=== PATIENT | male | born 1950 | race Caucasian/White ===

== ENCOUNTER → 2016-04-02 | Outpatient (CLI) | payer OTHER | LOC: FIMAGING 09:27 | PROVIDERS: ATTEND Internal Medicine | DX: B18.1 Chronic viral hepatitis B without delta-agent (principal) ==

== ENCOUNTER 2016-06-28 11:20 | Observation (INO) | payer OTHER ==
[2016-06-28] MEDS ORDERED: diphenhydrAMINE 25 MG CAP PO ONE ×2 (11:24→11:48)
[2016-06-28] MEDS ORDERED: FAMOTIDINE 20 MG TAB PO ONE (11:24)
[2016-06-28] MEDS ORDERED: NS 1,000 ML IV ONE (11:24)
[2016-06-28] MEDS ORDERED: DIAZEPAM 5 MG TAB PO ONE (11:24)
[2016-06-28] MEDS ORDERED: ASPIRIN EC 325 MG TAB PO ONE ×2 (11:24→11:49)
--- NOTE | 2016-06-28 11:43 | CPEKG ---
Heart Rate: 57 RR Interval: 1053 P-R Interval: 180 QRSD Interval: 108 QT Interval: 436 QTC Interval: 425 P [place]: 60 QRS [place]: 64 T Wave [place]: -5 EKG Severity - OTHERWISE NORMAL ECG - EKG Impression: SINUS RHYTHM EKG Impression: INCOMPLETE RIGHT BUNDLE BRANCH BLOCK Electronically Signed By: Katherine Milan 28-Jun-2016 12:04:42
[2016-06-28] MEDS ORDERED: FAMOTIDINE 20 MG TAB ONE (11:48)
[2016-06-28] MEDS ORDERED: DIAZEPAM 5 MG TAB ONE (11:49)
[2016-06-28 12:45] LABS: % IMMATURE GRANULYOCYTES 0.3 % (0.0-1.1); ABSOLUTE IMMATURE GRANULOCYTES 0.02 10^3/uL (0.00-0.10); ADD DIFF? NO; ADD MORPH? NO; ADD SCAN? NO; ATYPICAL LYMPHOCYTE FLAG 0 (0-99); FRAGMENT RBC FLAG 0 (0-99); HEMOGLOBIN 15.8 g/dL (13.7-17.5); LEFT SHIFT FLG 0 (0-99); LIPEMIA HEMOLYSIS FLAG 90 (0-99); MEAN CELL HEMOGLOBIN 32.8 pg (27.9-34.1); MEAN CELL HEMOGLOBIN CONCENTR. 35.9 g/dL (32.4-36.7); MEAN CELL VOLUME 91.3 fL (81.5-99.8); MEAN PLATELET VOLUME 10.1 fL (8.7-11.7); PLATELET CLUMPS FLAG 30 (0-99); PLATELET COUNT 143 10^3/uL (150-400); RED BLOOD CELL COUNT 4.82 10^6/uL (4.40-6.38); RED CELL DISTRIBUTION WIDTH 13.2 % (11.5-15.2)
[2016-06-28 13:00] LABS: INR 0.98 (0.83-1.16); PROTIME(PATIENT) 12.9 SEC (12.0-15.0)
[2016-06-28] MEDS ORDERED: LIDOCAINE 1% 30 ML SDV ONE (13:00)
[2016-06-28] MEDS ORDERED: MIDAZOLAM 2 MG/2 ML VIAL ONE ×2 (13:00→14:22)
[2016-06-28] MEDS ORDERED: IOPAMIDOL (ISOVUE-370) 150 ML BTL IV ONE ×2 (13:00→14:29)
[2016-06-28] MEDS ORDERED: fentaNYL 100 MCG/2 ML INJ ONE ×2 (13:00→14:22)
[2016-06-28 13:10] LABS: ANION GAP 12 mEq/L (8-16); CALCIUM 9.6 mg/dL (8.5-10.4); CARBON DIOXIDE 25 mEq/l (22-31); CHLORIDE 107 mEq/L (97-110); CHOLESTEROL 127 mg/dL (140-220); CHOLESTEROL/HDL RATIO 3.18 RATIO (1.00-4.97); GLOMERULAR FILTRATION RATE > 60; GLUCOSE 118 mg/dL (70-100); HIGH DENSITY LIPOPROTEIN 40 mg/dL (40-65); LDL/HDL RATIO 1.38 RATIO (1.00-3.64); LOW DENSITY LIPOPROTEIN 55 mg/dL (80-100); MAGNESIUM 1.8 mg/dL (1.6-2.3); NON-HIGH DENSITY LIPOPROTEIN 87 mg/dL (90-129); POTASSIUM 4.4 mEq/L (3.5-5.2); SODIUM 144 mEq/L (134-144); TRIGLYCERIDE 164 mg/dL (40-150); VERY LOW DENSITY LIPOPROTEINS 32 mg/dL (8-25)
[2016-06-28] MEDS ORDERED: BIVALIRUDIN 250 MG/5 ML VIAL IV ONE (13:54)
--- NOTE | 2016-06-28 15:25 | PDDXCAT ---
Diagnostic Cath Note - . Date: 06/28/16 Power Plant Operator Apprentice: Brodie Indication: High-risk criteria on noninvasive testing (choose option below) High-risk criteria on non-invasive testing: stress-induced large perfusion defect (particularly if anterior) - Procedure Access: right groin Procedure: left heart catheterization, coronary angiography, left ventriculogram , vein graft injection, PAGE injection - Materials Left Heart Cath size: 6F Left Heart Cath materials: standard multipack (JL4, JR4, pigtail), KALEB - Findings-Left Heart Catheterization LM: Short without appreciable delineation of the bifurcation between the LAD and LCX. Minor luminal irregularities were noted. LAD: 100% occlusion in the ostium of the vessel LCX: Medium to small diameter vessel with a principal OM (stented). In the proximal portion of the OM, involving the stent, there is a subtotal occlusion. This stenosis likely represents the defect noted on stress testing on recent stress testing at [facility]. RCA: Known to be 100% occluded rSVG: (1) rSVT to the PDA with 80% stenosis to the proximal portion of this vessel. Extensive stenting throughout the entire vessel was noted. Retrograde flow into the [place] RCA system was noted. Anterograde flow from the anastamotic site to distal vessel without impairment. PAGE: Widely patent PAGE to the LAD. Retrograde flow into the LAD, and down the principal diagonal. There is moderate tortuosity noted to the LAD/Diag system, but MARY III flow was noted. EDP: not assessed to limit contrast LVEF: not assessed Wall motion: not assessed Complications: no complications Estimated blood loss: <50ml Closure method: manual pressure Assessment: Patient is a 65 y/o male with extensive cardiovascular history (CAD s/p PCI and CABG) with abnormal stress testing at [facility] yesterday. Given complaints of chest discomfort, as well as "eleven" stents with CABG, we brought the patient to the cardiac labview programmer for assessment of a large lateral wall defect. A critical lesion to previously stented OM was noted as well as another lesion to the proximal portion of the rSVG to PDA. Patent PAGE to LAD was noted. Plan: Dr. Kamran Reeves to attempt PCI to the LCX/OM lesion and possibly the rSVG to PDA lesion noted. Intervention: pending
[2016-06-28] MEDS ORDERED: TEMAZEPAM 15 MG CAP PO PRN (17:32)
[2016-06-28] MEDS ORDERED: HYDROCODONE/APAP 5/325 TAB PO PRN (17:32)
[2016-06-28] MEDS ORDERED: ONDANSETRON 4 MG/2 ML VIAL IVP PRN (17:32)
[2016-06-28] MEDS ORDERED: LORazepam 2 MG/ML INJ IVP PRN (17:32)
[2016-06-28] MEDS ORDERED: ATROPINE SULFATE 1 MG/10 ML SYR IVP PRN (17:32)
[2016-06-28] MEDS ORDERED: NS 1,000 ML IV SCH (17:45)
[2016-06-28] MEDS ORDERED: NON-FORMULARY NEW DRUG (Insulin Pump, Patient Own 1 EA) MISC SCH (17:45)
[2016-06-28] MEDS ORDERED: D50W 25 GM/50 ML SYR IVP PRN (18:09)
[2016-06-28] MEDS ORDERED: INSULIN PUMP, PATIENT OWN 1 EA MISC SCH (18:15)
[2016-06-28] MEDS: METOPROLOL TARTRATE 25 MG TAB PO SCH (18:31)
[2016-06-28] MEDS: RAMIPRIL 5 MG CAP PO SCH (18:31)
[2016-06-28] MEDS: ISOSORBIDE MONONITRATE 30 MG TAB.SR PO SCH (18:31)
[2016-06-28] MEDS: OMEGA-3 FATTY ACIDS 1,000 MG CAP PO SCH (19:49)
[2016-06-28] MEDS: RALTEGRAVIR 400 MG TAB PO SCH (19:57)
--- NOTE | 2016-06-28 20:00 | CPIP ---
[f rep st] INVASIVE CARDIAC PROCEDURE DATE OF PROCEDURE: 06/28/2016 PROCEDURE PERFORMED: Attempted percutaneous coronary intervention of an obtuse marginal branch of t krishna circumflex. INDICATION FOR PROCEDURE: Please refer to the diagnostic cardiac cath report by Dr. Sky Calloway. Nikki kassidy, the patient is a 65-year-old male with a long-standing history of CAD. He underwent 2-vesse l coronary bypass surgery in 2001. He has had multiple PCI procedures in the past as well. Because of recurrent chest discomfort and an abnormal stress test, Dr. Calloway performed a diagnostic cathet erization which demonstrated that his PAGE graft to the LAD was patent and his saphenous vein graft to the distal RCA was patent, but there was suggestion of a moderate to high-grade lesion at the vishnu gin of the graft. The graft terminates on the inferior wall of the heart and supplies retrograde fi lling of a large portion of the mid and proximal RCA. However, proceeding distally there is only a small posterior descending branch. The patient has had previous PCI/stent procedures involving the circumflex territory. The proximal portion of the principal obtuse marginal branch demonstrated hig h-grade re-stenosis up to 90%. Based on the patient's clinical history and diagnostic catheterizati on, I was asked to perform PCI of the re-stenosis lesion in the proximal principal obtuse marginal b ranch and to consider PCI of the proximal saphenous vein graft to the distal RCA. DETAILS OF PROCEDURE: A 6-Gambian CLS 3.5 guide catheter was advanced to the left main. The patient received intravenous Angiomax. Attempts were made at passing an Intuition guidewire into the princ ipal obtuse marginal branch. However, the severe re-stenotic lesion could not be traversed. Additi onal attempts were made at placing a guidewire using a Disposition Clerk 50 guidewire with a 2.5 x 12 mm Emerge balloon acting as support. It was possible to advance the guidewire a short distance into the princ ipal obtuse marginal branch. However, it could not be advanced far enough to perform PCI. Subseque nt angiograms demonstrated that the guidewire had likely tracked subintimally producing a non-flow-l imiting dissection. The patient did not experience any chest discomfort and there were no ECG cisneros es on electrocardiographic monitoring. COMPLICATIONS: None. CONCLUSIONS: Unsuccessful attempt at PCI of the principal obtuse marginal branch. PLAN: His antianginal medical therapy should be maximized. If he continues to experience a signifi cant burden of angina, consideration could be given to a repeat attempt at PCI after the dissection has been allowed to heal. /[id number]/MODL
[2016-06-28 20:24] LABS: HEMOGLOBIN A1C 8.2 % (4.0-6.0)
[2016-06-28] MEDS ORDERED: buPROPion XL 150 MG TAB PO SCH (21:00)
[2016-06-28] MEDS ORDERED: CITALOPRAM 20 MG TAB PO SCH (21:00)
[2016-06-28] MEDS ORDERED: ALLOPURINOL 300 MG TAB PO SCH (21:00)
[2016-06-28] MEDS ORDERED: ATORVASTATIN CALCIUM 40 MG TAB PO SCH (21:00)
[2016-06-28] MEDS ORDERED: AMITRIPTYLINE HCL 10 MG TAB PO SCH (21:00)
[2016-06-28 23:48] VITALS: RESP 18
[2016-06-29 05:00] LABS: % IMMATURE GRANULYOCYTES 0.4 % (0.0-1.1); ABSOLUTE IMMATURE GRANULOCYTES 0.03 10^3/uL (0.00-0.10); ADD DIFF? NO; ADD MORPH? NO; ADD SCAN? NO; ATYPICAL LYMPHOCYTE FLAG 0 (0-99); FRAGMENT RBC FLAG 0 (0-99); HEMOGLOBIN 15.7 g/dL (13.7-17.5); LEFT SHIFT FLG 0 (0-99); LIPEMIA HEMOLYSIS FLAG 90 (0-99); MEAN CELL HEMOGLOBIN 33.2 pg (27.9-34.1); MEAN CELL HEMOGLOBIN CONCENTR. 36.5 g/dL (32.4-36.7); MEAN CELL VOLUME 90.9 fL (81.5-99.8); MEAN PLATELET VOLUME 10.4 fL (8.7-11.7); PLATELET CLUMPS FLAG 0 (0-99); PLATELET COUNT 128 10^3/uL (150-400); RED BLOOD CELL COUNT 4.73 10^6/uL (4.40-6.38); RED CELL DISTRIBUTION WIDTH 13.2 % (11.5-15.2)
[2016-06-29 05:26] LABS: ALBUMIN 4.1 g/dL (3.5-5.0); ANION GAP 12 mEq/L (8-16); ASPARTATE AMINOTRANSFERASE 34 IU/L (17-59); BILIRUBIN,TOTAL 1.1 mg/dL (0.1-1.4); CALCIUM 9.3 mg/dL (8.5-10.4); CARBON DIOXIDE 23 mEq/l (22-31); CHLORIDE 105 mEq/L (97-110); GLOMERULAR FILTRATION RATE > 60; GLUCOSE 114 mg/dL (70-100); LACTATE DEHYDROGENASE 473 IU/L (313-618); MAGNESIUM 1.7 mg/dL (1.6-2.3); SODIUM 140 mEq/L (134-144)
[2016-06-29] MEDS ORDERED: LEVOTHYROXINE 50 MCG TAB PO SCH (06:00)
[2016-06-29 07:45] VITALS: BP 173/96; PULSE 66; TEMP 97.9; O2SAT 94
[2016-06-29] MEDS: RAMIPRIL 5 MG CAP PO SCH (08:25)
[2016-06-29] MEDS: METOPROLOL TARTRATE 25 MG TAB PO SCH (08:25)
[2016-06-29] MEDS: ISOSORBIDE MONONITRATE 30 MG TAB.SR PO SCH (08:25)
[2016-06-29] MEDS: OMEGA-3 FATTY ACIDS 1,000 MG CAP PO SCH (08:26)
[2016-06-29] MEDS: RALTEGRAVIR 400 MG TAB PO SCH (08:29)
--- NOTE | 2016-06-29 08:50 | CPEKG ---
Heart Rate: 57 RR Interval: 1053 P-R Interval: 172 QRSD Interval: 108 QT Interval: 428 QTC Interval: 417 P [place]: 69 QRS [place]: 77 T Wave [place]: -3 EKG Severity - OTHERWISE NORMAL ECG - EKG Impression: SINUS RHYTHM EKG Impression: INCOMPLETE RIGHT BUNDLE BRANCH BLOCK Electronically Signed By: Katherine Milan 29-Jun-2016 11:38:24
[2016-06-29] MEDS ORDERED: MULTIVITAMINS 1 EACH TAB PO SCH (09:00)
[2016-06-29] MEDS ORDERED: TESTOSTERONE 5 GM TD SCH (09:00)
[2016-06-29] MEDS ORDERED: Herbals/Supplements -Info Only PO SCH (09:00)
[2016-06-29] MEDS ORDERED: ASPIRIN 325 MG TAB PO SCH (09:00)
[2016-06-29] MEDS ORDERED: Emtricitabine/Tenofov Alafenam [Descovy 200-25 Mg Tablet] 1 EACH) PO SCH (09:00)
--- NOTE | 2016-06-29 11:27 | GDS ---
[f rep st] DISCHARGE SUMMARY REASON FOR ADMISSION: Coronary artery disease. HOSPITAL COURSE: Please refer to Dr. Sal Romo's recent office note, which serves as the admissi on history and physical for this hospital encounter. Briefly the patient has a long history of jennifer nary artery disease with a 2 vessel CABG having been performed in 2001 followed by at least 3 subseq uent PCI procedures within the past 5 years. He presented to the office and reported ongoing episod es of chest discomfort both at rest and with exertion. A pharmacologic nuclear stress test suggeste d a large territory of reversible ischemia involving the inferolateral distribution. On this basis, a cardiac catheterization was scheduled. His diagnostic procedure was performed yesterday by Dr. Ba Calloway. That study demonstrated occlusion of his LAD with an excellent PAGE graft. His [place] RCA was occluded. He has a saphenous vein graft to the distal RCA, which was patent, but had a sign ificant ostial stenosis. The ostial lesion had progressed compared to a catheterization performed i 2014. The [place] circumflex and its principal obtuse marginal branch both had stented segments fr om prior procedures. The circumflex itself had no high-grade lesions. However, the very proximal p ortion of the principal obtuse marginal branch demonstrated severe in-stent restenosis with a lesion of approximately 90% with slightly reduced anterograde flow. Based on his clinical history and dylon gnostic catheterization, I decided to perform PCI of the principal obtuse marginal branch and to als o consider PCI of the ostium of the saphenous vein graft to the distal RCA. However, it should be n oted that the vein graft fills a significant portion of the RCA retrogradely, but there is only a sm all posterior descending branch going anterograde. The principal obtuse marginal branch seemed to b e the more obvious culprit for his symptoms and perfusion defect. PCI was attempted, however, the p roximal stenosis in the obtuse marginal branch could not be traversed. After initially using an int uition guidewire, I switched to a Network Contract Manager 50 guidewire. This guidewire was able to be advanced a shor t distance into the obtuse marginal branch. However, it became clear that it was likely subintimal producing a non flow-limiting dissection. At this point, the procedure was terminated. I spoke wit h the patient and his partner later in the evening. He is currently on good antianginal therapy, bu t has room for increases in both his beta-marjan and long-acting nitrate. In speaking with him, he feels that his angina is not severely limiting. It resolves easily with rest and occasional sublin gual nitroglycerin. The resting symptoms that he experienced recently may be more gastrointestinal in origin. One particular episode occurred any time he would lay down. It was better if he sat up and did seem to respond to nitroglycerin, but it is conceivable that this could have represented aci d reflux and a component of esophageal spasm. RECOMMENDATIONS/DISPOSITION: The patient is discharged in stable condition. At this point, no lawson ges were made to his home medications, which are documented in the electronic record. He should con tinue with a heart healthy diet. He currently has a followup with Nasima Tinajero NP on August 06. I will notify the [facility] office staff to seek an earlier appointment for him. DISCHARGE DIAGNOSES: 1. Coronary artery disease. 2. Unsuccessful attempt at PCI of the principal obtuse marginal branch of the circumflex. /[id number]/MODL
== END 2016-06-29 13:04 | disposition home or self-care (01) ==
LOC: FCATH 11:20 → F2W 17:33
PROVIDERS: ADMIT Internal Medicine Interventional Cardiology; ATTEND Internal Medicine Cardiovascular Disease
PROC: B2151ZZ Fluoroscopy of Left Heart using Low Osmolar Contrast (ICD-10-PCS; principal; 2016-06-28)
PROC: 4A023N7 Measurement of Cardiac Sampling and Pressure, Left Heart, Percutaneous Approach (ICD-10-PCS; principal; 2016-06-28)
PROC: B2111ZZ Fluoroscopy of Multiple Coronary Arteries using Low Osmolar Contrast (ICD-10-PCS; principal; 2016-06-28)
PROC: B2181ZZ Fluoroscopy of Left Internal Mammary Bypass Graft using Low Osmolar Contrast (ICD-10-PCS; principal; 2016-06-28)
PROC: B2101ZZ Fluoroscopy of Single Coronary Artery using Low Osmolar Contrast (ICD-10-PCS; principal; 2016-06-28)
DX: I25.10 Atherosclerotic heart disease of native coronary artery without angina pectoris (principal); Z95.1 Presence of aortocoronary bypass graft; Z95.5 Presence of coronary angioplasty implant and graft; T82.855A Stenosis of coronary artery stent, initial encounter
CPT/HCPCS: 93005; 93455; C1725; C1769; C1887; G0378; C1760; J0583; J1644; J2250; J3010; Q9967

== ENCOUNTER 2016-08-08 07:13 | Day surgery (SDC) | payer OTHER ==
[2016-08-08] MEDS ORDERED: DIAZEPAM 5 MG TAB PO ONE (07:14)
[2016-08-08] MEDS ORDERED: ASPIRIN EC 325 MG TAB PO ONE (07:14)
[2016-08-08] MEDS ORDERED: FAMOTIDINE 20 MG TAB PO ONE (07:14)
[2016-08-08] MEDS ORDERED: diphenhydrAMINE 25 MG CAP PO ONE ×2 (07:14→07:49)
[2016-08-08] MEDS ORDERED: NS 1,000 ML IV ONE (07:14)
--- NOTE | 2016-08-08 07:32 | CPEKG ---
Heart Rate: 57 RR Interval: 1053 P-R Interval: 188 QRSD Interval: 104 QT Interval: 428 QTC Interval: 417 P [place]: 68 QRS [place]: 86 T Wave [place]: 2 EKG Severity - OTHERWISE NORMAL ECG - EKG Impression: SINUS RHYTHM EKG Impression: BORDERLINE RIGHT AXIS DEVIATION Electronically Signed By: Sky Calloway 09-Aug-2016 09:43:55
[2016-08-08] MEDS ORDERED: FAMOTIDINE 20 MG TAB ONE (07:49)
[2016-08-08] MEDS ORDERED: DIAZEPAM 5 MG TAB ONE (07:50)
[2016-08-08 07:52] LABS: % IMMATURE GRANULYOCYTES 0.2 % (0.0-1.1); ABSOLUTE IMMATURE GRANULOCYTES 0.01 10^3/uL (0.00-0.10); ADD DIFF? NO; ADD MORPH? NO; ADD SCAN? NO; ATYPICAL LYMPHOCYTE FLAG 0 (0-99); FRAGMENT RBC FLAG 0 (0-99); HEMOGLOBIN 15.6 g/dL (13.7-17.5); LEFT SHIFT FLG 0 (0-99); LIPEMIA HEMOLYSIS FLAG 90 (0-99); MEAN CELL HEMOGLOBIN 32.9 pg (27.9-34.1); MEAN CELL HEMOGLOBIN CONCENTR. 35.5 g/dL (32.4-36.7); MEAN CELL VOLUME 92.8 fL (81.5-99.8); MEAN PLATELET VOLUME 9.9 fL (8.7-11.7); PLATELET CLUMPS FLAG 10 (0-99); PLATELET COUNT 155 10^3/uL (150-400); RED BLOOD CELL COUNT 4.74 10^6/uL (4.40-6.38); RED CELL DISTRIBUTION WIDTH 13.2 % (11.5-15.2)
[2016-08-08] MEDS ORDERED: IOPAMIDOL (ISOVUE-370) 150 ML BTL IV ONE ×2 (08:03→10:47)
[2016-08-08] MEDS ORDERED: BIVALIRUDIN 250 MG/5 ML VIAL IV ONE ×2 (08:03→09:53)
[2016-08-08 08:04] LABS: PROTIME(PATIENT) 13.1 SEC (12.0-15.0)
[2016-08-08] MEDS ORDERED: NITROGLYCERIN 1,500 MCG/15 ML VIAL MISC ONE (08:04)
[2016-08-08] MEDS ORDERED: MIDAZOLAM 2 MG/2 ML VIAL ONE ×2 (08:05→09:47)
[2016-08-08] MEDS ORDERED: LIDOCAINE 1% 300 MG/30 ML SDV ONE (08:05)
[2016-08-08] MEDS ORDERED: fentaNYL 100 MCG/2 ML INJ ONE ×2 (08:05→09:47)
[2016-08-08 08:23] LABS: ANION GAP 14 mEq/L (8-16); CALCIUM 9.9 mg/dL (8.5-10.4); CARBON DIOXIDE 19 mEq/l (22-31); CHLORIDE 108 mEq/L (97-110); CHOLESTEROL 126 mg/dL (140-220); CHOLESTEROL/HDL RATIO 4.06 RATIO (1.00-4.97); GLOMERULAR FILTRATION RATE > 60; GLUCOSE 175 mg/dL (70-100); HIGH DENSITY LIPOPROTEIN 31 mg/dL (40-65); LDL/HDL RATIO 1.87 RATIO (1.00-3.64); LOW DENSITY LIPOPROTEIN 58 mg/dL (80-100); NON-HIGH DENSITY LIPOPROTEIN 95 mg/dL (90-129); POTASSIUM 5.2 mEq/L (3.5-5.2); SODIUM 141 mEq/L (134-144); SPECIMEN HEMOLYSIS 121; TRIGLYCERIDE 188 mg/dL (40-150); VERY LOW DENSITY LIPOPROTEINS 37 mg/dL (8-25)
[2016-08-08] MEDS ORDERED: CLOPIDOGREL BISULFATE 75 MG TAB PO ONE (11:10)
[2016-08-08] MEDS ORDERED: ATROPINE SULFATE 1 MG/10 ML SYR IVP PRN (11:10)
[2016-08-08] MEDS ORDERED: NS 1,000 ML IV SCH (11:15)
--- NOTE | 2016-08-08 11:21 | PDDXCAT ---
Diagnostic Cath Note - . Date: 08/08/16 Electromechanical Equipment Tester: Ravi Indication: Class I/II angina, intolerance to med therapy or failure to respond - Procedure Access: right groin Procedure: left heart catheterization, coronary angiography, vein graft injection - Materials Left Heart Cath size: 7F Left Heart Cath materials: other (multi-purpose 7 tajik) - Findings-Left Heart Catheterization LM: unobstructed LAD: 100% unobstructed. LCX: 100% OM rSV% SVG to PD Complications: none Estimated blood loss: <100ml Closure method: manual pressure Assessment: SVG to RCA PCI. [place] OM PCI. Intervention: Procedure: PCI and stenting of the saphenous vein graft to the right coronary artery. PCI and stenting of chronically occluded 1st obtuse marginal branch. After reviewing previously done diagnostic angiograms it was elected to proceed with PCI. Patient was anticoagulated with Angiomax. Using a a 7 Pakistani multipurpose guiding catheter is saphenous vein graft to the distal right was selectively intubated. Using a 0.014 luge wire the proximal stenosis was crossed and placed in the distal vessel. Pre dilatation of the ostium was performed with a 2 mm balloon. A 3.0 x 12 mm synergy stent was then placed in the ostium. A single inflation. The proximal stent was then flared with a 3.5 mm balloon. Final angiogram revealed MARY grade 3 flow. At this point we checked an ACT was was 180. It was found that the IV had infiltrated. A venous sheath was inserted in the right femoral vein. Patient was rebolused. Therapeutic ACT was confirmed. Our attention was then turned to the obtuse marginal branch. We initially intubated the left main coronary with a 7 Pakistani EBU 3 guiding catheter. This did not provide adequate support and was withdrawn. We upsized to an 8 Pakistani femoral sheath. An 8 Pakistani EBU 4 was used to intubate left main coronary artery. Using a 0.014 fixed wing pilot 50 wire the obtuse marginal stenosis was crossed and placed in the distal vessel a 0.014 mailman was placed in the [place] circumflex artery. A 1.25 mm balloon that crossed the lesion. Several inflations were performed reestablishing antegrade flow. We upsized to a 2 mm balloon with serial inflations. We then used a 2.5 mm balloon to reestablish a good lumen. It was elected proceed with stenting at 2.75 x 16 mm synergy stent was placed across the stenosis and deployed using a single inflation. The stent was post dilated with a 3 mm balloon including InStent restenosis below the new stent. Repeat angiogram showed MARY grade 3 flow. Patient is an taken to recovery for continued care. Conclusions: Successful PCI and stenting of the vein graft to the right coronary artery. Successful PCI and stenting of the [place] obtuse marginal branch. Patient Problems: Problems Problem Status Onset Coronary artery disease involving coronary bypass graft Acute Coronary artery disease Acute
--- NOTE | 2016-08-08 11:44 | CPEKG ---
Heart Rate: 53 RR Interval: 1132 P-R Interval: 196 QRSD Interval: 104 QT Interval: 444 QTC Interval: 417 P [place]: 57 QRS [place]: 77 T Wave [place]: 35 EKG Severity - NORMAL ECG - EKG Impression: SINUS RHYTHM Electronically Signed By: Sky Calloway 09-Aug-2016 09:45:03
[2016-08-09] MEDS ORDERED: ASPIRIN EC 325 MG TAB PO SCH (09:00)
[2016-08-09] MEDS ORDERED: CLOPIDOGREL BISULFATE 75 MG TAB PO SCH (09:00)
== END 2016-08-08 19:16 | disposition home or self-care (01) ==
LOC: FCATH 07:13
PROVIDERS: ATTEND Internal Medicine Interventional Cardiology
DX: T82.857A Stenosis of other cardiac prosthetic devices, implants and grafts, initial encounter (principal); I25.10 Atherosclerotic heart disease of native coronary artery without angina pectoris; E78.5 Hyperlipidemia, unspecified; E11.9 Type 2 diabetes mellitus without complications; I10 Essential (primary) hypertension; E03.9 Hypothyroidism, unspecified
CPT/HCPCS: 92928; 92937; 93005; C1725; C1769; C1887; C1874; C9600; C9604; J0461; J0583; J1644; J2250; J3010; Q9967

== ENCOUNTER 2017-09-04 09:27 | Day surgery (SDC) | payer OTHER ==
[2017-09-04] MEDS ORDERED: ASPIRIN EC 325 MG TAB PO ONE (09:30)
[2017-09-04] MEDS ORDERED: FAMOTIDINE 20 MG TAB PO ONE (09:30)
[2017-09-04] MEDS ORDERED: NS 1,000 ML IV ONE (09:30)
[2017-09-04] MEDS ORDERED: diphenhydrAMINE 25 MG CAP PO ONE (09:30)
[2017-09-04] MEDS ORDERED: DIAZEPAM 5 MG TAB PO ONE (09:30)
--- NOTE | 2017-09-04 09:48 | CPEKG ---
Heart Rate: 54 RR Interval: 1111 P-R Interval: 176 QRSD Interval: 110 QT Interval: 428 QTC Interval: 406 P [place]: 68 QRS [place]: 82 T Wave [place]: 7 EKG Severity - ABNORMAL ECG - EKG Impression: SINUS RHYTHM EKG Impression: INCOMPLETE RIGHT BUNDLE BRANCH BLOCK Electronically Signed By: Osman Reinoso 04-Sep-2017 11:02:04
[2017-09-04 10:39] LABS: PLATELET COUNT 141 10^3/uL (150-400)
[2017-09-04 10:49] LABS: PROTIME(PATIENT) 13.4 SEC (12.0-15.0)
--- NOTE | 2017-09-04 20:18 | CPIP ---
[f rep st] INVASIVE CARDIAC PROCEDURE DATE OF PROCEDURE: 09/04/2017 Cardiac Report The patient was scheduled for cardiac catheterization with me today. This was on the basis of reported episodes of chest discomfort and his history of coronary artery disease with a previous 2-vessel coronary bypass operation performed in 2001 and 2-vessel PCI in July of last year. A recent nuclear stress test demonstrated a small, fixed inferolateral perfusion defect. There was also a severe reversible anterior perfusion abnormality. In speaking with him today, he rarely has chest discomfort. He takes a daily walk at his lunch hour and does not experience any chest pain. If he significantly over exerts himself, he may have some chest pressure, but this is an uncommon occurrence. He presented in June of last year with chest discomfort. At that time, a nuclear stress test demonstrated a large, reversible inferolateral defect. Cardiac catheterization was performed and demonstrated a patent PAGE to LAD graft, high-grade disease of the principal obtuse marginal branch of the circumflex, and a high-grade ostial stenosis of his saphenous vein graft to the distal RCA. I attempted PCI of the obtuse marginal branch. The lesion could not be crossed with a guidewire, and a small dissection was created. The procedure was terminated at that point. A few weeks later, his usual painter ordnance, Dr. Rodrigues, performed a successful PCI of the circumflex obtuse marginal branch and the ostial lesion in the saphenous vein graft to the RCA. In reviewing his films and his nuclear stress test reports, his current study no longer demonstrates the significant inferolateral ischemic burden. It has been replaced by a small, residual fixed perfusion defect. Both of his nuclear stress tests from June of 2016 and recently demonstrate a reversible anterior perfusion abnormality. I explained to the patient and his partner that I suspect that this is due to ischemia related to retrograde flow from his PAGE to LAD graft up the proximal LAD and into a severely diseased, multibranched diagonal system. I also explained that this would not be amenable to PCI. Given his lack of significant anginal symptoms and the stability of his anterior perfusion abnormality, along with improved appearance of his inferolateral territory, I did not think that catheterization was going to yield a particularly useful finding or demonstrate an opportunity for additional revascularization. The patient's catheterization was canceled. The patient's partner was somewhat disconcerted by this situation and went to the office to speak with Dr. Rodrigues. /[id number]/MODL MTDD
== END 2017-09-04 11:34 | disposition home or self-care (01) ==
LOC: FCATH 09:27
PROVIDERS: ATTEND Internal Medicine Interventional Cardiology
DX: R94.39 Abnormal result of other cardiovascular function study (principal); I25.10 Atherosclerotic heart disease of native coronary artery without angina pectoris; R94.31 Abnormal electrocardiogram [ECG] [EKG]; E11.59 Type 2 diabetes mellitus with other circulatory complications; E78.5 Hyperlipidemia, unspecified; I10 Essential (primary) hypertension; M10.9 Gout, unspecified; E03.9 Hypothyroidism, unspecified; E29.9 Testicular dysfunction, unspecified; Z79.82 Long term (current) use of aspirin; Z79.02 Long term (current) use of antithrombotics/antiplatelets; Z95.1 Presence of aortocoronary bypass graft; Z95.5 Presence of coronary angioplasty implant and graft; Z96.41 Presence of insulin pump (external) (internal); Z53.8 Procedure and treatment not carried out for other reasons

== ENCOUNTER → 2017-10-22 | Emergency (ER) | payer OTHER | DX: Z53.21 Procedure and treatment not carried out due to patient leaving prior to being seen by health care provider (principal) ==

== ENCOUNTER → 2017-10-22 | Outpatient (CLI) | payer OTHER ==
[~2017-10-22] MED LIST: IOPAMIDOL (ISOVUE 370) 100 ML BTL IV ONE
== END ==
LOC: FIMAGING 18:38
PROVIDERS: ATTEND Internal Medicine Interventional Cardiology
DX: I65.23 Occlusion and stenosis of bilateral carotid arteries (principal); I65.03 Occlusion and stenosis of bilateral vertebral arteries
CPT/HCPCS: 82565-PO; Q9967

== ENCOUNTER 2017-11-01 08:06 | Inpatient (IN) | payer OTHER ==
--- NOTE | 2017-10-31 21:25 | GHP ---
The patient is a 67-year-old male who is admitted at this time for a left carotid endarterectomy. He has had right-sided symptoms but has a completely occluded right internal carotid artery. He has filling of his right brain with crossover from the left side, which now demonstrates a 70% stenosis at the bifurcation. He is admitted at this time for left carotid endarterectomy. Risks and options have been fully discussed including increased risk because of multivessel disease. His vertebrals were also compromised. He is presently alert and oriented and wishes to proceed with surgery. The risks and options have been fully discussed. His ultrasound by the way does not show high-grade stenosis despite the findings on his CTA. His major complaint is cognitive dysfunction with memory loss. He is aware that this may not improve with surgery. He has been slurring his speech at times. He has had no toxic exposures. No history of brain injury. REVIEW OF SYSTEMS: Negative except as related to the HPI. PAST MEDICAL HISTORY: Includes coronary artery disease with coronary artery bypass. He has also had percutaneous angioplasties with stents. He has type 2 diabetes, hepatitis B infection, positive for HIV, hyperlipidemia, hypertension , hypothyroidism, and a history of pneumonia in the past. PAST SURGICAL HISTORY: Includes an appendectomy and coronary artery bypass graft. PRESENT MEDICATIONS: Include AndroGel, aspirin, Lipitor, Plavix, thyroxine, isosorbide, Isentress, Humalog, multivitamins, Nitrostat, ramipril, trazodone, Wellbutrin, acyclovir, allopurinol, amlodipine. ALLERGIES: None. PHYSICAL EXAMINATION: GENERAL: An alert 67-year-old male who is in no acute distress. HEAD AND NECK: Reveal him to be nonicteric. Pupils are equal and reactive. There are no oral lesions. He has a faint bruit in the left neck. No bruits on the right. He has a decreased right carotid pulse. CARDIAC: Reveals no murmurs or gallops and regular rhythm. CHEST: Clear to auscultation and percussion. EXTREMITIES: Reveal full range of motion, full pulses. NEUROLOGIC: Reveals him to be alert and oriented. He has symmetric motor function. His pupils are normal. Cranial nerves appear to be intact. Motor function is symmetrical bilaterally. PSYCH: Reveals him to be alert, cooperative, and oriented. IMPRESSION: It is a high risk situation with multivessel extracranial vascular disease. He has a 70% stenosis of the left carotid with a full occlusion of the right carotid. He is admitted for left carotid endarterectomy. He will need a shunt and EEG monitoring. He also has vertebral artery disease bilaterally. Risks and options have been fully discussed including a high risk of stroke from the surgery and he wishes to proceed. /[id number]/MODL MTDD
[2017-11-01] MEDS ORDERED: LR 1,000 ML IV ONE (08:24)
[2017-11-01] MEDS ORDERED: ceFAZolin 2 GM/DEXTROSE 100 ML IV ONE (08:24)
[2017-11-01] MEDS ORDERED: fentaNYL 100 MCG/2 ML INJ IVP PRN (09:37)
[2017-11-01] MEDS ORDERED: ACETAMINOPHEN 500 MG TAB PO PRN (09:37)
[2017-11-01] MEDS ORDERED: oxyCODONE IR 5 MG TAB PO PRN (09:37)
[2017-11-01] MEDS ORDERED: DEXAMETHASONE 4 MG/ML VIAL IVP PRN (09:37)
[2017-11-01] MEDS ORDERED: ONDANSETRON 4 MG/2 ML VIAL IVP PRN ×2 (09:37→13:01)
[2017-11-01] MEDS ORDERED: HYDROmorphONE/DILAUDID 2 MG/ML INJ IVP PRN (09:37)
[2017-11-01] MEDS ORDERED: NALOXONE HCL 0.4 MG/ML INJ IVP PRN (09:37)
--- NOTE | 2017-11-01 09:38 | PDHPUP ---
History & Physical Update H&P update statement: This history and physical update is based on an assessment of the patient which was completed after admission or registration (within 24 hours), but prior to the surgery/procedure. H&P update: H&P reviewed & patient examined, no change in patient's condition since H&P completed
--- NOTE | 2017-11-01 09:41 | PDANEPAE ---
ANE History of Present Illness L Carotid ANE Past Medical History - Cardiovascular History Hx Hypertension: Yes Hx Arrhythmias: No Hx Chest Pain: Yes Hx Coronary Artery / Peripheral Vascular Disease: Yes Hx CHF / Valvular Disease: No Hx Palpitations: No Cardiovascular History Comment: CABG x 4, 2000. Multiple stenting. carotid stenosis - Pulmonary History Hx COPD: No Hx Asthma/Reactive Airway Disease: No Hx Recent Upper Respiratory Infection: No Hx Oxygen in Use at Home: No Hx Sleep Apnea: No Sleep Apnea Screening Result - Last Documented: Positive Pulmonary History Comment: LOUIE Triggers only - Neurologic History Hx Cerebrovascular Accident: No Hx Seizures: No Hx Dementia: No Neurologic History Comment: recent memory/cognitive and balance issues - R/T carotid stenosis. diabetic foot pain - Endocrine History Hx Diabetes: Yes Endocrine History Comment: hypothyroid - Renal History Hx Renal Disorders: No - Liver History Hx Hepatic Disorders: Yes Hepatic History Comment: Hepatitis B - Neurological & Psychiatric Hx Hx Neurological and Psychiatric Disorders: Yes Neurological / Psychiatric History Comment: depression - Cancer History Hx Cancer: No - Congenital Disorder History Hx Congenital Disorders: No - GI History Hx Gastrointestinal Disorders: Yes Gastrointestinal History Comment: frequent diarrhea - Other Health History Other Health History: wears glasses. skin dry. HIV + - Chronic Pain History Chronic Pain: Yes (neuropathy in feet) - Surgical History Prior Surgeries: Multiple stents, "about 12 total". CABG X 4, 2000. Jake brush ANE Review of Systems Review of Systems: - Exercise capacity METS (RN): 4 METS ANE Patient History - Allergies Allergies/Adverse Reactions: No Allergies [NKA] Allergy (Verified 10/29/17 12:17) - Home Medications Home Medications: Allopurinol [Allopurinol 300 MG (RX)] 300 mg PO HS 11/11/14 [Last Taken 05:30] Aspirin [Aspirin 325 mg (*)] 325 mg PO DAILY 11/11/14 [Last Taken 10/29/17] Multivitamins [Multivitamin (*)] 1 each PO DAILY 11/11/14 [Last Taken 10/29/17] Nitroglycerin [Nitrostat 0.4 mg (*)] 0.4 mg SL PRN PRN 11/11/14 [Last Taken 3 Months Ago ~08/01/17] Raltegravir [Isentress] 400 mg PO BID 11/11/14 [Last Taken 11/01/17 05:30] metFORMIN HCL [Glucophage 500 mg (*)] 1,000 mg PO BIDMEAL 11/11/14 [Last Taken 10/30/17] Atorvastatin Calcium [Lipitor 40 mg (*)] 80 mg PO HS 06/28/16 [Last Taken ] Emtricitabine/Tenofov Alafenam [Descovy 200-25 mg Tablet] 1 each PO DAILY [Last Taken 11/01/17 05:30] Insulin Pump, Patient Own 1 ea [facility] 06/28/16 [Last Taken 11/01/17] Levothyroxine [Synthroid 50 mcg (*)] 50 mcg PO DAILY06 06/28/16 [Last Taken 05:30] [place]-3 Fatty Acids [Fish Oil 1000 mg (*)] 1,000 mg PO BID 06/28/16 [Last Taken 10/29/17] buPROPion XL [Wellbutrin 150mg XL] 300 mg PO HS 06/28/16 [Last Taken 10/31/17] Acyclovir [Zovirax 400 mg (*)] 400 mg PO BID PRN 09/03/17 [Last Taken 10/31/17] Cholecalciferol Vit D3 [Vitamin D3 2000 units tab (OTC)] 2,000 units PO BID [Last Taken 10/29/17] Clopidogrel Bisulfate [Plavix (*)] 75 mg PO HS 09/03/17 [Last Taken 10/29/17] DULoxetine [Cymbalta 60 MG (*)] 60 mg PO DAILY 09/03/17 [Last Taken 11/01/17 05: 30] Metoprolol Succinate Xr [Toprol Xl 25 mg (*)] 25 mg PO BID 09/03/17 [Last Taken 11/01/17 05:30] Ramipril [Altace] 10 mg PO BID 09/03/17 [Last Taken 11/01/17 05:30] Testosterone [ANDROGEL 1% 5gm pkt (*)] 5 gm TD DAILY 09/03/17 [Last Taken ] amLODIPine BESYLATE [Norvasc 5 mg (*)] 5 mg PO HS 09/03/17 [Last Taken 10/31/17 05:30] traZODone [traZODONE 100MG (*)] 100 mg PO HS 09/03/17 [Last Taken 10/31/17] Tamsulosin HCl [Flomax 0.4 MG (*)] 0.4 mg PO DAILY 10/28/17 [Last Taken Unknown] Isosorbide Mononitrate [Imdur 30 mg (*)] 30 mg PO DAILY 10/29/17 [Last Taken 05:30] - NPO status NPO Since - Liquids (Date): 11/01/17 NPO Since - Liquids (Time): 06:30 NPO Since - Solids (Date): 10/31/17 NPO Since - Solids (Time): 20:30 - Smoking Hx Smoking Status: Former smoker - Family Anes Hx Family Hx Anesthesia Complications: none ANE Labs/Vital Signs - Vital Signs Blood Pressure: 120/79 Heart Rate: 55 Respiratory Rate: 18 O2 Sat (%): 93 Height: 177.8 cm Weight: 86.183 kg ANE Physical Exam - Airway Neck exam: FROM Mallampati Score: Class 2 Mouth exam: normal dental/mouth exam - Pulmonary Pulmonary: clear to auscultation - Cardiovascular Cardiovascular: regular rate and rhythym - ASA Status ASA Status: III ANE Anesthesia Plan Anesthesia Plan: general endotracheal anesthesia
[2017-11-01] MEDS ORDERED: PROPOFOL/EMULSION 500 MG/50 ML BOTTLE IV ONE ×2 (09:43→09:44)
[2017-11-01] MEDS ORDERED: REMIFENTANIL HCL 1 MG VIAL ONE ×3 (09:47→09:48)
[2017-11-01] MEDS ORDERED: THROMBIN (BOVINE) 20,000 UNIT SPRAY TP ONE (09:52)
[2017-11-01] MEDS ORDERED: PROTAMINE SULFATE 50 MG/5 ML VIAL IVP ONE (09:52)
[2017-11-01] MEDS ORDERED: BUPIVACAINE 0.5% 30 ML SDV ONE (09:52)
[2017-11-01] MEDS ORDERED: HEPARIN 10,000 UNIT/10 ML MDV (1,000 UNIT/ML) ONE (09:54)
[2017-11-01] MEDS ORDERED: PHENYLEPHRINE HCL 100 MCG/ML SYR ONE ×2 (09:55→11:54)
[2017-11-01] MEDS ORDERED: ONDANSETRON 4 MG/2 ML VIAL ONE (10:53)
[2017-11-01] MEDS ORDERED: RANITIDINE 50 MG/2 ML VIAL ONE (10:53)
--- NOTE | 2017-11-01 12:23 | POSTANESTH ---
Post Anesthetic Evaluation Cardiovascular Status: Normal, Stable Respiratory Status: Normal, Stable Level of Consciousness/Mental Status: Can Participate in Eval, Mildly Sleepy, Arousable Pain Control: Adequate, Prn Tx Ordered Nausea/Vomiting Control: Adequate, Prn Tx Ordered Complications Possibly Related to Anesthesia: None Noted (Moved all 4 extremities in the OR)
[2017-11-01] MEDS ORDERED: HYDROmorphONE/DILAUDID 1 MG/ML INJ IVP PRN (13:00)
[2017-11-01] MEDS ORDERED: ONDANSETRON DISINTEGRATING 4 MG TAB PO PRN (13:01)
--- NOTE | 2017-11-01 13:04 | POSTOPPROG ---
Post Op Note Date of Operation: 11/01/17 Surgeon: Ezra Bar Senior Pl Sql Developer: Kristie Anesthesiologist: Virgil Anesthesia: GET(General Endotracheal) Pre-op Diagnosis: Carotid stenosis Post-op Diagnosis: same Indication: same Procedure: L CEA with EEG monitoring Findings: Good backflow, no EEG changes Inf/Abcess present in the surg proc area at time of surgery?: No Depth: Deep Incisional (Fascial) EBL: 50-100 Specimen(s): Carotid LN x2 Carotid plaque
--- NOTE | 2017-11-01 13:28 | PDMN ---
Medical Necessity Medical necessity: Pt meets inpt criteria per MD order and [facility] [place], [place] S-300, Carotid Endarterectomy, CPT 74260- Medicare inpt-only list code. 67 y/o s/p L carotid endarterectomy w/EEG monitoring, admitted for post-op monitoring/treatment.
[2017-11-01] MEDS ORDERED: D50W 25 GM/50 ML SYR IVP PRN (14:13)
[2017-11-01] MEDS ORDERED: NON-FORMULARY NEW DRUG (Insulin Pump, Patient Own 1 EA) MISC SCH (14:15)
[2017-11-01] MEDS ORDERED: INSULIN PUMP, PATIENT OWN 1 EA MISC SCH (14:15)
--- NOTE | 2017-11-01 16:04 | GCON ---
INTERNAL MEDICINE CONSULTATION. DATE OF CONSULTATION: 11/01/2017 REASON FOR CONSULTATION: Medical opinion regarding multiple medical problems, postoperative period. Requesting physician is Dr. Ezra Bar. HISTORY: The patient is a 67-year-old male who has undergone an elective left carotid endarterectomy with Dr. Bar for a 70% stenosis. He has 100% stenosis in the right carotid artery as well as a 50 % right vertebral and 70% left vertebral artery stenosis. Prior to surgery he had been having neurol ogic symptoms including shuffling gait, cognitive changes, decreased memory as well as speech changes with intermittent slurred speech. This led to the eventual carotid ultrasound and CT angiogram of t he brain revealing significant cerebrovascular disease. In the postoperative period he is doing very well. He has no complaints other than a sore throat, du e to the intubation. Otherwise moving all extremities equally and doing very well. PAST MEDICAL HISTORY: 1. Coronary artery disease, status post previous CABG and 12 stents. 2. Diabetes type 2. Managed with an insulin pump. 3. HIV positive followed by Dr. Smiley, viral load undetectable. He was 1st diagnosed in the b ut has had a fairly indolent course and has not even required anti retroviral medications until appro ximately 10 years ago. 4. Hypertension. 5. Hyperlipidemia. MEDICATIONS: Please see computer record for full detailed list. ALLERGIES: No known drug allergies. SOCIAL HISTORY: Quit smoking in 1995. He will occasionally have an alcoholic beverage when he goes out for dinner with his who is at bedside and very supportive. REVIEW OF SYSTEMS: Complete review of systems obtained. Review of systems negative regarding consti tutional, HEENT, GI, pulmonary, vascular, , hematology, endocrine, psych, except for positives and negatives as in HPI. FAMILY HISTORY: Reviewed, noncontributory to presenting complaint. PHYSICAL EXAMINATION: GENERAL: Well-developed, well-nourished male, in no distress. VITAL SIGNS: Te mperature 36, pulse 60, blood pressure 138/81, saturating 94% on room air. EYES: Normal conjunctiva e. Pupils react to light. ENT: Normal ears and nose. Hearing intact. Normal lips and teeth. Orop harynx moist. NECK: Trachea midline. No thyromegaly. Left carotid endarterectomy. Postoperative d ressing. CHEST: Normal effort, lungs clear to auscultation bilaterally. CARDIOVASCULAR: Regular rate and rhythm. No murmur. No lower extremity edema. ABDOMEN: Soft, nontender. No hepatosplenomegal y. SKIN: Warm, dry, intact. No rash. MUSCULOSKELETAL: No cyanosis or clubbing. Strength 5/5 upp er and lower extremities. NEUROLOGIC: Cranial nerves intact. Normal sensation to light touch. PSY CH: Alert, oriented x3. Normal affect. Normal judgment. Normal memory. LABS: Blood glucoses postoperatively are 151 at the last check. I have personally spoken with PEGGY Diamond for Dr. Bar regarding need for consultation. Old chart reviewed including predominant ly Cardiology records regarding revascularization and stenting procedures with Dr. Rodrigues. Telemet ry reviewed, he is currently in a normal sinus rhythm. We will check a.m. CBC and chem 7. ASSESSMENT AND PLAN: 1. Peripheral vascular disease status post left carotid endarterectomy. Postoperative management pr edominantly by Dr. Bar. I will hold his aspirin and Plavix until it is okay to restart them per sarina iyer. He is already on Lipitor 40 mg. 2. Diabetes type 2, managed with an insulin pump which will be placed on insulin pump inpatient prot ocol. 3. Coronary artery disease, status post previous coronary artery bypass graft and stents x12. He is clearly a severe vasculopath. He is on a cardiac regimen for this which will be continued. 4. Human immunodeficiency virus positive. Viral load undetectable. Follows with Dr. Smiley. We will continue his usual anti-retroviral therapy. Thank you very much for this consultation. Internal Medicine will continue to follow. /[id number]/MODL
[2017-11-01] MEDS ORDERED: NS BOLUS 500 ML (Wide open) IV ONE (16:30)
--- NOTE | 2017-11-01 16:47 | SOAPPROG ---
SOAP Progress Note Assessment/Plan: Assessment: POSTOP ALERT/ WOUND OK/ AFEBRILE/ NEURO INTACT Plan:HOME IN AM 11/01/17 16:46 Objective: Vital Signs Temp Pulse Resp BP Pulse Ox 36.6 C 51 L 12 110/50 L 98 11/01/17 16:00 11/01/17 16:19 11/01/17 16:00 11/01/17 16:19 11/01/17 16:00 10/31/17 11/01/17 11/02/17 05:59 05:59 05:59 Intake Total 2100 Output Total 250 Balance 1850 ICD10 Worksheet Patient Problems: Problems Problem Status Onset Coronary artery disease Acute Coronary artery disease involving coronary bypass graft Acute
[2017-11-01] MEDS: metFORMIN HCL 500 MG TAB PO SCH (18:32)
[2017-11-01] MEDS: oxyCODONE IR 5 MG TAB PO PRN ×2 (18:32→20:09)
[2017-11-01] MEDS: ALLOPURINOL 300 MG TAB PO SCH (20:01)
[2017-11-01] MEDS: traZODone 100 MG TAB PO SCH ×2 (20:02→20:03)
[2017-11-01] MEDS: RALTEGRAVIR 400 MG TAB PO SCH (20:02)
[2017-11-01] MEDS: buPROPion XL 150 MG TAB PO SCH (20:02)
[2017-11-01] MEDS: ATORVASTATIN CALCIUM 40 MG TAB PO SCH (20:14)
[2017-11-01] MEDS: amLODIPine BESYLATE 5 MG TAB PO SCH (20:54)
[2017-11-01] MEDS: METOPROLOL SUCCINATE XR 25 MG TAB PO SCH (20:55)
[2017-11-02] MEDS: amLODIPine BESYLATE 5 MG TAB PO SCH ×2 (03:04→20:42)
[2017-11-02 07:11] LABS: PLATELET COUNT 132 10^3/uL (150-400)
[2017-11-02] MEDS: LEVOTHYROXINE 50 MCG TAB PO SCH (07:31)
[2017-11-02] MEDS: metFORMIN HCL 500 MG TAB PO SCH ×2 (08:13→17:37)
[2017-11-02] MEDS: RAMIPRIL 5 MG CAP PO SCH ×2 (08:13→20:42)
[2017-11-02] MEDS: METOPROLOL SUCCINATE XR 25 MG TAB PO SCH ×2 (08:13→20:42)
[2017-11-02] MEDS: oxyCODONE IR 5 MG TAB PO PRN ×2 (08:13→14:10)
[2017-11-02] MEDS: RALTEGRAVIR 400 MG TAB PO SCH ×2 (08:13→21:30)
[2017-11-02] MEDS: TESTOSTERONE 1% 5 GM GEL PKT TD SCH (08:14)
[2017-11-02] MEDS: ISOSORBIDE MONONITRATE 30 MG TAB.SR PO SCH (08:14)
[2017-11-02] MEDS: TAMSULOSIN HCL 0.4 MG CAP PO SCH (08:14)
[2017-11-02] MEDS: DULoxetine 60 MG CAP PO SCH (08:14)
--- NOTE | 2017-11-02 15:09 | HOSPPROG ---
Hospitalist Progress Note Assessment/Plan: * Severe PVD s/p left CEA -restart ASA/Plavix when ok with surgery -continue statin * CAD/CABG/stents * HIV + -continue anti-retroviral regimen * DM II -insulin pump * HTN -home meds Subjective: some pain at operative site, throat secretions hard to bring up Objective: Vital Signs Temp Pulse Resp BP Pulse Ox 37.1 C 65 21 H 141/70 H 93 11/02/17 06:00 11/02/17 08:13 11/02/17 08:00 11/02/17 08:14 11/02/17 08:00 Laboratory Results 11/02/17 06:40 11/02/17 06:40 11/01/17 11/02/17 11/03/17 05:59 05:59 05:59 Intake Total 3880 Output Total 1810 Balance 2069 - Physical Exam Constitutional: no apparent distress, appears nourished, not in pain Cardiovascular: regular rate and rhythym, no murmur, rub, or gallop Respiratory: no respiratory distress, no rales or rhonchi, clear to auscultation Gastrointestinal: normoactive bowel sounds, soft, non-tender abdomen, no palpable masses Skin: no rashes or abrasions, no fluctuance, no induration Neurologic: AAOx3, sensation intact bilaterally Psychiatric: interacting appropriately, not anxious, not encephalopathic, thought process linear ICD10 Worksheet Patient Problems: Problems Problem Status Onset Coronary artery disease Acute Coronary artery disease involving coronary bypass graft Acute
--- NOTE | 2017-11-02 17:13 | ASMTCMCOM ---
CM Note CM Note Notes: 11/02/2017 Case Management Note Pt admitted for carotid stenosis. There are no identified case management d/c needs d/t pt marital status, PT recommendations and independence in ADL's prior to admission. Case Management d/c poc: anticipating independent with follow up as directed. Case Management available if needs change. Date Signed: 11/02/2017 05:12 PM Electronically Signed By:Carlotta Durham RN
[2017-11-02] MEDS: EMTRICITABINE PO SCH (17:28)
[2017-11-02] MEDS: TENOFOV ALAFENAM PO SCH (17:28)
--- NOTE | 2017-11-02 17:41 | SOAPPROG ---
SOAP Progress Note Assessment/Plan: Assessment: POSTOP ALERT/ WOUND OK/ AFEBRILE/ NEURO INTACT Plan:HOME IN AM 11/01/17 16:46 11/02/17 17:39 ALERT/ORIENTED/NEUROLOGICALLY INTACT WOUND OKAY COMPLAIN OF SORE THROAT VITAL SIGNS STABLE/AFEBRILE PLAN: TRANSFER TO [facility] / [facility]/POSSIBLY HOME IN THE A.M. Objective: Vital Signs Temp Pulse Resp BP Pulse Ox 36.8 C 78 14 137/80 H 89 L 11/02/17 16:00 11/02/17 16:00 11/02/17 16:00 11/02/17 16:00 11/02/17 16:00 Laboratory Results 11/02/17 06:40 11/02/17 06:40 11/01/17 11/02/17 11/03/17 05:59 05:59 05:59 Intake Total 3880 Output Total 1810 Balance 2070 ICD10 Worksheet Patient Problems: Problems Problem Status Onset Coronary artery disease Acute Coronary artery disease involving coronary bypass graft Acute
[2017-11-02] MEDS: ALLOPURINOL 300 MG TAB PO SCH (20:42)
[2017-11-02] MEDS: buPROPion XL 150 MG TAB PO SCH (20:42)
[2017-11-02] MEDS: ATORVASTATIN CALCIUM 40 MG TAB PO SCH (20:42)
[2017-11-03] MEDS: LEVOTHYROXINE 50 MCG TAB PO SCH (07:16)
[2017-11-03] MEDS: oxyCODONE IR 5 MG TAB PO PRN (07:16)
[2017-11-03 08:28] VITALS: BP 114/68
[2017-11-03] MEDS: metFORMIN HCL 500 MG TAB PO SCH (08:30)
[2017-11-03] MEDS: ISOSORBIDE MONONITRATE 30 MG TAB.SR PO SCH (08:30)
[2017-11-03] MEDS: RAMIPRIL 5 MG CAP PO SCH (08:30)
[2017-11-03] MEDS: DULoxetine 60 MG CAP PO SCH (08:31)
[2017-11-03] MEDS: TAMSULOSIN HCL 0.4 MG CAP PO SCH (08:31)
[2017-11-03] MEDS: METOPROLOL SUCCINATE XR 25 MG TAB PO SCH (08:31)
[2017-11-03] MEDS: EMTRICITABINE PO SCH (08:31)
[2017-11-03] MEDS: TENOFOV ALAFENAM PO SCH (08:31)
[2017-11-03] MEDS: TESTOSTERONE 1% 5 GM GEL PKT TD SCH (08:39)
--- NOTE | 2017-11-03 09:51 | SOAPPROG ---
SOAP Progress Note Assessment/Plan: Assessment: POSTOP ALERT/ WOUND OK/ AFEBRILE/ NEURO INTACT Plan:HOME IN AM 11/01/17 16:46 11/02/17 17:39 ALERT/ORIENTED/NEUROLOGICALLY INTACT WOUND OKAY COMPLAIN OF SORE THROAT VITAL SIGNS STABLE/AFEBRILE PLAN: TRANSFER TO [facility] / [facility]/POSSIBLY HOME IN THE A.M. 11/03/17 09:51 NEURO INTACT/WOUND OKAY/FEELING BETTER TODAY/SWALLOWING WELL HOME TODAY Objective: Vital Signs Temp Pulse Resp BP Pulse Ox 37.1 C 71 12 114/68 90 L 11/03/17 08:00 11/03/17 08:31 11/03/17 08:00 11/03/17 08:31 11/03/17 08:00 Laboratory Results 11/02/17 06:40 11/02/17 06:40 11/02/17 11/03/17 11/04/17 05:59 05:59 05:59 Intake Total 3880 Output Total 1810 Balance 2070 ICD10 Worksheet Patient Problems: Problems Problem Status Onset Coronary artery disease Acute Coronary artery disease involving coronary bypass graft Acute
[2017-11-03] MEDS: RALTEGRAVIR 400 MG TAB PO SCH (10:12)
--- NOTE | 2017-11-03 13:50 | ASDISCHSUM ---
Discharge Information Plan Status:Home with No Needs Medically Cleared to Leave:11/03/2017 Discharge Date:11/03/2017 11:05 AM CM D/C Disposition:Home, Routine, Self-Care ADT D/C Disposition:Home, Routine, Self-Care Projected Discharge Date:11/03/2017 12:00 AM Transportation at D/C:Family Discharge Delay Reason: Follow-Up Date:11/03/2017 12:00 AM Discharge Slot:1 - 8:01 am - 12:00 noon Final Diagnosis:s/p planned left carotid endarterectomy Placement Information Patient Contact Information Contact Name:RENU Relationship:Life Partner Address:[address] Home Phone: City:[facility] Phone: [facility]/Zip Code:[place] [address] Email: Financial Information Financial Class:BCOP Primary Plan Desc:[employer] Primary Plan Number:[id number] Secondary Plan Desc: Secondary Plan Number: Assessment Information [facility] CM Progress Note CM Note MK Note Notes: 11/02/2017 Case Management Note Pt admitted for carotid stenosis. There are no identified case management d/c needs d/t pt marital status, PT recommendations and independence in ADL's prior to admission. Case Management d/c poc: anticipating independent with follow up as directed. Case Management available if needs change. Date Signed: 11/02/2017 05:12 PM Electronically Signed By:Carlotta Durham RN Case Management Discharge Plan Note Case Management Discharge Discharge Order Complete? Answers: Yes Patient to Obtain Answers: via Family Medications Transportation Arranged Answers: Family/Friends Family Notified Answers: Yes Discharge Comments Notes: MK spoke with ELOY re: patient status. Patient will discharge home independently with , no CM needs identified at this time. CM available to support if any further discharge needs arise. Date Signed: 11/03/2017 01:49 PM Electronically Signed By:Aruna Hennessy Intervention Information
--- NOTE | 2017-11-11 10:43 | GDS ---
DISCHARGE DIAGNOSES: 1. Coronary artery disease. 2. Left carotid stenosis. SPECIAL TESTS: None. CONSULTATIONS: Internal Medicine by Dr. Silva. PROCEDURES: Left carotid endarterectomy with EEG monitoring. INTRAOPERATIVE FINDINGS: The patient was found to have good back flow and no EEG changes. HOSPITAL COURSE: This is a 67-year-old male who was admitted to the hospital to undergo planned left carotid endarterectomy. He had a history of right- sided symptoms, but had a completely occluded right internal carotid artery. He had filling of his right brain with crossover from the left side, which prior to surgery demonstrated a 70% stenosis at the bifurcation. The patient was brought to the operating room and tolerated the procedure well. His postoperative course was unremarkable. Given his extensive history of HIV, hep B, diabetes and peripheral vascular disease, the patient was managed by the hospital team. Following surgery, the patient's pain was well controlled on oral pain medication. He also remained neurologically intact throughout his hospital stay. He was then discharged home on 11/03 in good condition. At this point, he remained neurologically intact, his pain was under control, and he had no difficulty swallowing. He was advised to follow up in our office in 1 week for a postoperative check. He was discharged home on his normal medications, including aspirin, Plavix, and Lipitor. He was advised to avoid heavy lifting or strenuous activity. He was advised to follow up with any stroke-like symptoms or worsening pain, or fever or chills. /[id number]/MODL MTDD
--- NOTE | 2017-11-11 12:29 | GOP ---
DATE OF OPERATION: 11/01/2017 SURGEON: Ezra Bar MD HOSPITAL SOCIAL WORKER: Kaylee Flowers, nurse practitioner. ANESTHESIA: Dr. Herman. PREOPERATIVE DIAGNOSIS: Critical left carotid stenosis. POSTOPERATIVE DIAGNOSIS: Critical left carotid stenosis. PROCEDURE PERFORMED: Left carotid endarterectomy with EEG monitoring, deep cervical lymph node biops y. FINDINGS: The patient was found to have a tight plaque. He had good backflow and no EEG changes. H e also had an enlarged lymph node which was removed. DESCRIPTION OF PROCEDURE: The patient was taken to the operating room where he received satisfactory general endotracheal anesthesia by Dr. Herman. He had been systemically heparinized prior to inducti on of anesthesia. He was prepped and draped in the usual sterile fashion. An incision was made arabella g the anterior border of the sternocleidomastoid muscle and dissection extended down through the plat ysma and subcutaneous tissue and then through the cervical fascia. The common facial vein was dissec ayad free and doubly ligated and divided exposing the carotid arterial tree which was then dissected f ree. A large lymph node was encountered and this was dissected free and submitted through to Patholo gy. Hemostasis was obtained with hemoclips and electrocautery. The common carotid, internal carotid , and external carotid vessels were all dissected free and controlled with vessel loops as was the branch perior thyroid artery. After adequate exposure was achieved, additional heparin was given to the pat ient; and, after adequate circulation time, the vessels were occluded. Arteriotomy was made in the c ommon carotid artery and the incision was extended up through the localized but tight plaque at the o rigin of the internal carotid artery. Good backflow was present, but a shunt was placed anyway. The re were no EEG changes. Endarterectomy then was completed with a good feathered end at the distal po int of the surgery. All debris was irrigated free and removed. The wound was then closed with a Dac elbert patch and sutured in place with a Hemashield 7 suture. All vessels were flushed prior to complet ion of the procedure after the shunt was removed. The suture line was then quickly completed. Flow was first established through the external carotid and then back through the internal carotid artery. Suture line appeared to be hemostatic. Heparin was reversed with protamine. The wound was irrigat ed. Hemostasis was thoroughly obtained. The wound was then sprayed with topical thrombin and closed in layers using 3-0 Vicryl for the cervical fascia with 3-0 Vicryl for the platysma and subcutaneous tissue and 4-0 Monocryl subcuticular stitch for the skin. All layers infiltrated with 0.5% Marcaine . Blood loss negligible. No complications. He was taken to the recovery room in good condition. /[id number]/MODL
== END 2017-11-03 11:05 | disposition home or self-care (01) | DRG 39 ==
LOC: F2W 08:06 → F2N 13:20 → F3E 11-02 17:16
PROVIDERS: ADMIT Surgery; ATTEND Surgery
DX: I65.23 Occlusion and stenosis of bilateral carotid arteries (principal); I10 Essential (primary) hypertension; G47.33 Obstructive sleep apnea (adult) (pediatric); E03.9 Hypothyroidism, unspecified; E11.69 Type 2 diabetes mellitus with other specified complication; R39.9 Unspecified symptoms and signs involving the genitourinary system; N52.9 Male erectile dysfunction, unspecified; E78.5 Hyperlipidemia, unspecified; Z21 Asymptomatic human immunodeficiency virus [HIV] infection status; Z23 Encounter for immunization; Z95.1 Presence of aortocoronary bypass graft; Z96.41 Presence of insulin pump (external) (internal); E11.51 Type 2 diabetes mellitus with diabetic peripheral angiopathy without gangrene
CPT/HCPCS: 92610-GN; 97161-GP; 97530-GP; C1768; G0008; G8978-GP-CI; G8979-GP-CH; J0690; J1170; J1644; J2370; J2405; J2704; J2720; J2780

== ENCOUNTER → 2018-01-07 | Outpatient (CLI) | payer OTHER | LOC: FIMAGING 07:28 | PROVIDERS: ATTEND Internal Medicine | DX: R16.0 Hepatomegaly, not elsewhere classified (principal); I25.10 Atherosclerotic heart disease of native coronary artery without angina pectoris; E11.9 Type 2 diabetes mellitus without complications; E78.5 Hyperlipidemia, unspecified; B19.10 Unspecified viral hepatitis B without hepatic coma; Z79.899 Other long term (current) drug therapy ==

== ENCOUNTER → 2018-01-20 | Outpatient (CLI) | payer OTHER | LOC: FIMAGING 10:10 | PROVIDERS: ATTEND Internal Medicine | DX: M85.89 Other specified disorders of bone density and structure, multiple sites (principal); Z21 Asymptomatic human immunodeficiency virus [HIV] infection status; I25.10 Atherosclerotic heart disease of native coronary artery without angina pectoris; E11.9 Type 2 diabetes mellitus without complications; E78.5 Hyperlipidemia, unspecified ==